=== PATIENT | female | born 1965 | race Caucasian/White ===

== ENCOUNTER → 2021-01-16 | Outpatient (CLI) | payer MEDICAID ==
[~2021-01-16] MED LIST: ASP325TEC PO
--- NOTE | 2021-01-16 13:10 | Diagnostic Imaging Report ---
Indication: Routine screening. No prior mammograms are available for comparison. 2-D and 3-D bilateral screening mammography was performed with CAD. Scattered fibroglandular densities are identified bilaterally. No mass or malignant appearing microcalcifications are seen. Axillae are unremarkable. IMPRESSION: BI-RADS Category 1 No mammographic features suspicious for malignancy are identified. ACR BI-RADS Category 1: Negative. Result letter will be mailed to the patient. Note: At least 10% of breast cancer is not imaged by mammography. Dictated by: Dictated on workstation # [id number]
== END ==
LOC: RAD 07:30
PROVIDERS: ATTEND Pediatrics
DX: Z12.31 Encounter for screening mammogram for malignant neoplasm of breast (principal)
CPT/HCPCS: 77063; 77067

== ENCOUNTER 2022-05-18 23:26 | Emergency (ER) | payer MEDICAID, OTHER ==
[~2022-05-18] VITALS: Ht 167.7 cm; Wt 92.5 kg
[2022-05-18] MEDS ORDERED: ASPIRIN 81 MG CHEW (CHILDREN'S ASA) PO STA (23:44)
[2022-05-18] MEDS ORDERED: PANTOPRAZOLE 40 MG (PROTONIX) VIAL IV ONE (23:45)
[2022-05-18 23:52] LABS: BASOPHILS # (AUTO) 0.1 10^3/uL (0.0-0.1); BASOPHILS % (AUTO) 1 % (0-10); EOSINOPHILS # (AUTO) 0.3 10^3/uL (0.0-0.3); EOSINOPHILS % (AUTO) 2 % (0-10); HEMATOCRIT 44 % (35-52); LYMPHOCYTES # (AUTO) 6.1 10^3/uL (1.0-4.0); LYMPHOCYTES % (AUTO) 44 % (12-44); MEAN CORPUSCULAR HEMOGLOBIN 31 pg (25-34); MEAN CORPUSCULAR HGB CONC 34 g/dL (32-36); MEAN CORPUSCULAR VOLUME 92 fL (80-99); MEAN PLATELET VOLUME 8.9 fL (9.0-12.2); MONOCYTES # (AUTO) 0.9 10^3/uL (0.0-1.0); MONOCYTES % (AUTO) 6 % (0-12); NEUTROPHILS # (AUTO) 6.4 10^3/uL (1.8-7.8); NEUTROPHILS % (AUTO) 47 % (42-75); PLATELET COUNT 294 10^3/uL (130-400); WHITE BLOOD COUNT 13.8 10^3/uL (4.3-11.0)
[2022-05-18 23:58] LABS: ALBUMIN 4.4 GM/DL (3.2-4.5)
[2022-05-19] LABS: INR 0.9 (0.8-1.4); PROTHROMBIN TIME PATIENT 12.2 SEC (12.2-14.7); TOTAL PROTEIN 7.5 GM/DL (6.4-8.2)
[2022-05-19 00:02] LABS: BILIRUBIN,TOTAL 0.3 MG/DL (0.1-1.0)
[2022-05-19 00:04] LABS: CREATININE SERUM 1.24 MG/DL (0.60-1.30)
[2022-05-19 00:07] LABS: MAGNESIUM 1.9 MG/DL (1.6-2.4)
--- NOTE | 2022-05-19 00:15 | ED Chest Pain ---
General Chief Complaint: Chest Pain Stated Complaint: CHEST PAIN,TOOK ASPIRIN Nursing Triage Note: TO ED VIA POV AND AMBULATORY TO ROOM 5 WITH C/O CP THAT STARTED APPROX 40MIN LAY OUT CARPENTER WHILE LAYING DOWN. STATES SHE WAS SOA AT THE TIME AND TOOK AN ASA, BUT IS UNSURE OF DOSE. DENIES SOA ON ARRIVAL AND RATES PAIN 2/10 AT THIS TIME. Source: patient Exam Limitations: no limitations History of Present Illness Date Seen by Provider: May 18, 2022 Time Seen by Provider: 23:31 Initial Comments Here with acute onset of chest pain that is central and nonradiating that occurred when she was laying down and started approximately 40 minutes prior to arrival. She was short of air at that time and did take 1 baby aspirin. Currently she reports she is chest pain-free. Does have history of chest pain work-up and has had heart cath in 2005 and 2010 that were clean. Does have cholesterol problems but does not take any meds currently. Overall is feeling better. Timing/Duration: 1 hour, changing over time, gone now Severity/Quality: moderate, aching, pressure Location: central Radiation: no radiation Activities at Onset: none Prior CP/Workup: cardiac cath, echocardiography, stress test Modifying Factors: improves with rest ASA po LAY OUT CARPENTER: Yes NTG SL LAY OUT CARPENTER: No Associated Symptoms: No abdominal pain, No back pain, No diaphoresis, No dizziness, No nausea/vomiting; shortness of breath; No weakness Allergies and Home Medications Allergies Coded Allergies: Crowley And Derivatives (Unverified Allergy, Unknown, LIPS SWELL WHEN PT EATS, 12/25/05) Sulfa (Sulfonamide Antibiotics) (Verified Allergy, Unknown, 12/25/05) latex (Verified Allergy, Unknown, 05/18/22) Uncoded Allergies: LATEX (Allergy, Mild, 12/25/05) Patient Home Medication List Home Medication List Reviewed: Yes Aspirin (Aspirin Ec 325 Mg) 325 Mg Tabec, 325 MG PO DAILY, (Reported) Entered as Reported by: ROSA VELAZCO on 07/02/11 7390 Review of Systems Review of Systems Constitutional: No chills, No fever EENTM: No Nose Congestion, No Throat Pain Respiratory: Denies Cough; Shortness of Air Cardiovascular: Chest Pain; Denies Edema Gastrointestinal: Denies Nausea, Denies Vomiting Genitourinary: No Symptoms Reported Musculoskeletal: No back pain, No muscle pain Skin: no symptoms reported Psychiatric/Neurological: No Symptoms Reported All Other Systems Reviewed Negative Unless Noted: Yes Past Svjljyw-Xjkivm-Tarvpy Hx Patient Social History Tobacco Use?: Yes Tobacco type used: Cigarettes Smoking Status: Current Everyday Smoker Substance use?: No Alcohol Use?: No Pt feels they are or have been: No Immunizations Up To Date 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 oz. kg; 32.00 BMI Method: General Appearance: WD/WN, Anxious HEENT: PERRL/EOMI, Pharynx Normal Neck: Non Tender, Supple Respiratory: Lungs Clear, Normal Breath Sounds Cardiovascular: Regular Rate, Rhythm, No Murmur Gastrointestinal: Non Tender, Soft Extremity: Normal Inspection, Normal Range of Motion, Non Tender, No Calf Tenderness Neurologic/Psychiatric: Alert, Oriented x3 Skin: Normal Color, Warm/Dry Progress/Results/Core Measures Results/Orders Lab Results Laboratory Tests Test 05/18/22 23:35 05/19/22 01:38 Range/Units White Blood Count 13.8 H 4.3-11.0 10^3/uL Red Blood Count 4.79 3.80-5.11 10^6/uL Hemoglobin 15.0 11.5-16.0 g/dL Hematocrit 44 35-52 % Mean Corpuscular Volume 92 80-99 fL Mean Corpuscular Hemoglobin 31 25-34 pg Mean Corpuscular Hemoglobin Concent 34 32-36 g/dL Red Cell Distribution Width 13.2 10.0-14.5 % Platelet Count 294 130-400 10^3/uL Mean Platelet Volume 8.9 L 9.0-12.2 fL Immature Granulocyte % (Auto) 0 % Neutrophils (%) (Auto) 47 42-75 % Lymphocytes (%) (Auto) 44 12-44 % Monocytes (%) (Auto) 6 0-12 % Eosinophils (%) (Auto) 2 0-10 % Basophils (%) (Auto) 1 0-10 % Neutrophils # (Auto) 6.4 1.8-7.8 10^3/uL Lymphocytes # (Auto) 6.1 H 1.0-4.0 10^3/uL Monocytes # (Auto) 0.9 0.0-1.0 10^3/uL Eosinophils # (Auto) 0.3 0.0-0.3 10^3/uL Basophils # (Auto) 0.1 0.0-0.1 10^3/uL Immature Granulocyte # (Auto) 0.0 0.0-0.1 10^3/uL Prothrombin Time 12.2 12.2-14.7 SEC INR Comment 0.9 0.8-1.4 Activated Partial Thromboplast Time 35 24-35 SEC Sodium Level 138 135-145 MMOL/L Potassium Level 4.0 3.6-5.0 MMOL/L Chloride Level 103 98-107 MMOL/L Carbon Dioxide Level 20 L 21-32 MMOL/L Anion Gap 15 H 5-14 MMOL/L Blood Urea Nitrogen 19 H 7-18 MG/DL Creatinine 1.24 0.60-1.30 MG/DL Estimat Glomerular Filtration Rate 51 BUN/Creatinine Ratio 15 Glucose Level 98 70-105 MG/DL Calcium Level 10.0 8.5-10.1 MG/DL Corrected Calcium 9.7 8.5-10.1 MG/DL Magnesium Level 1.9 1.6-2.4 MG/DL Total Bilirubin 0.3 0.1-1.0 MG/DL Aspartate Amino Transf (AST/SGOT) 17 5-34 U/L Alanine Aminotransferase (ALT/SGPT) 15 0-55 U/L Alkaline Phosphatase 114 40-136 U/L Myoglobin 60.8 10.0-92.0 NG/ML Troponin I < 0.028 < 0.028 <0.028 NG/ML Total Protein 7.5 6.4-8.2 GM/DL Albumin 4.4 3.2-4.5 GM/DL Triglycerides Level 162 H <150 MG/DL Cholesterol Level 184 < 200 MG/DL LDL Cholesterol Direct 117 1-129 MG/DL VLDL Cholesterol 32 5-40 MG/DL HDL Cholesterol 43 40-60 MG/DL My Orders Orders - DEVANTE JOLLY MD Cbc With Automated Diff (05/18/22 23:32) Magnesium (05/18/22 23:32) Chest 1 View, Ap/Pa Only (05/18/22 23:32) Ekg Tracing (05/18/22:32) Comprehensive Metabolic Panel (05/18/22:32) Myoglobin Serum (05/18/22:32) Protime With Inr (05/18/22:) Partial Thromboplastin Time (05/18/22:32) O2 (05/18/22:) Monitor-Rhythm Ecg Trace Only (05/18/22:32) Lipid Panel (05/19/22 06:00) Ed Iv/Invasive Line Start (05/18/22:32) Troponin I [place] (05/18/22:32) Aspirin Chewable Tablet (Baby Aspirin Ch (05/18/22 23:44) Pantoprazole Injection (Protonix Injecti (05/18/22 23:45) Troponin I [place] (05/19/22 01:29) Medications Given in ED Current Medications Medications Dose Ordered Sig/Bhaskar Route Start Time Stop Time Status Last Admin Dose Admin Pantoprazole 40 mg ONCE ONCE IV 05/18/22 23:45 05/18/22 23:46 DC 05/18/22 23:52 40 MG Vital Signs/I&O 05/18/22 23:33 Temp 36.7 Pulse 82 Resp 16 B/P (MAP) 138/94 (109) Pulse Ox 98 O2 Delivery Room Air Blood Pressure Mean: 109 Progress Progress Note : Progress Note Seen and evaluated. IV, labs, EKG and ASA 324 mg p.o. ordered to complete dosing. Protonix 40 mg IV to reduce stomach acid in case this is what caused the event. She does have of history of heart catheterization in 2010 had no obstructive disease noted through the coronary arteries. Monitor patient. 0020: Remains chest pain-free. Initial troponin negative. She is not hypoxic nor tachycardic. No concerns she has no significant risk factors for DVT or PE. We will repeat troponin at 0140 and if she remains chest pain-free, we will discharge her home with follow-up with her doctor. I did discuss with her about smoking cessation. Chest x-ray does not show any acute findings and EKG does not show any concerning findings. 0219: Repeat troponin is negative. Patient remains chest pain-free. Discharged home with return precautions. Patient verbalized understanding of instructions and agreement with plan. I will send a copy of the chart to [facility]. Initial ECG Impression Date: May 18, 2022 Initial ECG Impression Time: 23:37 Initial ECG Rate: 84 Initial ECG Rhythm: Normal Sinus Comment Sinus rhythm with normal axis. No evidence of ST elevation MA. Similar to previous of 07/01/2011. Interpreted by me. Diagnostic Imaging Diagonstic Imaging: Xray Plain Films/CT/US/NM/MRI: chest Comments Single view chest x-ray shows no acute findings. Reviewed by me. Reviewed: Reviewed by Me Departure Impression Primary Impression: Chest pain Qualified Codes: R07.9 - Chest pain, unspecified Disposition: HOME, SELF-CARE Condition: Improved Departure-Patient Inst. Decision time for Depature: 02:20 Referrals: [facility] (PCP/Family) Primary Care Physician Add. Discharge Instructions: All discharge instructions reviewed with patient and/or family. Voiced understanding. Follow-up with your doctor this week for recheck and further evaluation and for referral for stress test as needed. You may take [id number] omeprazole, 20 mg daily for the next 2 weeks. You may purchase this [id number] and a 2-week Dosepak. Discussed continuation of this with your doctor. Return for worse pain, fever, vomiting, weakness, breathing problems or other concerns as needed. Copy Copies To 1: LYNDON GOODWIN MD, TIMOTHY D MD May 19, 2022 00:15
[2022-05-19 01:57] LABS: TRIGLYCERIDES 162 MG/DL (<150); VLDL CHOLESTEROL 32 MG/DL (5-40)
[2022-05-19 02:02] LABS: CHOLESTEROL 184 MG/DL (< 200); HDL CHOLESTEROL 43 MG/DL (40-60)
[2022-05-19 02:21] VITALS: BP 108/64
--- NOTE | 2022-05-19 05:57 | Diagnostic Imaging Report ---
EXAMINATION: Chest 1 view HISTORY: Chest pain. COMPARISON: None available. FINDINGS: The lung volumes are normal. No focal consolidation is seen. No large pleural effusion or pneumothorax is seen. The cardiomediastinal silhouette is normal in size and contour. No acute osseous abnormality is seen. IMPRESSION: 1. No acute pleuroparenchymal process. Dictated by: Dictated on workstation # [id number]
== END 2022-05-19 02:26 | disposition home or self-care (01) ==
LOC: EDUNIT# 23:26 → ER 23:28
DX: R07.89 Other chest pain (principal); F17.210 Nicotine dependence, cigarettes, uncomplicated; Z95.9 Presence of cardiac and vascular implant and graft, unspecified; Z86.79 Personal history of other diseases of the circulatory system; Z91.040 Latex allergy status
CPT/HCPCS: 36415; 71045; 80053; 80061; 83735; 83874; 84484; 85025; 85610; 85730; 93005; 93041